=== PATIENT | female | born 1955 | race Caucasian/White ===

== ENCOUNTER 2020-11-27 09:28 | Outpatient (REF) | payer BC, SELFPAY | END 2020-11-27 09:29 | disposition home or self-care (01) | LOC: HO.WFDLDS 09:28 | PROVIDERS: PCP Nurse Practitioner Adult Health; Visit Provider Internal Medicine | DX: Z20.828 Contact with and (suspected) exposure to other viral communicable diseases (principal) | CPT/HCPCS: 36415; C9803; U0003 ==